=== PATIENT | male | born 1945 | race Caucasian/White ===

== ENCOUNTER 2018-10-25 09:03 | Day surgery (SDC) | payer OTHER ==
[~2018-10-25] VITALS: Ht 170.2 cm; Wt 99.0 kg
[~2018-10-25 09:03] MED LIST: ASPI81CH PO; ASPI81EC PO; CLOP75 PO; Cortisporin Ear10 ML OT; LEVFLO500 PO; METO25ER PO; SIMV40 PO
[2018-10-25] MEDS ORDERED: NITR.4SL SL (10:11)
--- NOTE | 2018-10-25 16:28 | NUR ---
PT VERBALIZED UNDERSTANDING OF D/C INSTRUCTIONS. RIGHT FEMORAL SITE APPEARS TO BE STABLE. MYNX CLOSURE DEVICE USED POST PROCEDURE TODAY. TEGADERM INTACT. NO ACTIVE BLEEDING, OOZING, OR PAIN NOTED. PT ENCOURAGED TO FULLY READ DISCHARGE INSTRUCTIONS AND TO ATTEND FOLLOW UP APT. PT RIDE CALLED AND ENROUTE. IV REMOVED FROM LEFT HAND WITH CATH INTACT, PRESSURE DRESSING APPLIED. PT TAKEN OUT TO VEHICLE VIA W/C WITH NADN. PERSONAL BELONGINGS SENT HOME WITH PT. VSS.
== END 2018-10-25 16:30 | disposition home or self-care (01) ==
LOC: MHTC 09:03
DX: I72.3 Aneurysm of iliac artery (principal); I10 Essential (primary) hypertension; E78.5 Hyperlipidemia, unspecified; Z72.0 Tobacco use
CPT/HCPCS: 37236; 75625; 75710; 99152; 99153; C1725; C1760; C1769; C1874; C1887; C1894; J1644; J2250; J3010; J7030; J7040; Q9967

== ENCOUNTER 2018-12-19 08:45 | Inpatient (IN) | payer OTHER ==
[~2018-12-19] VITALS: Ht 170.2 cm; Wt 99.6 kg
[~2018-12-19 08:45] MED LIST changes: +Lopressor 25 mg25 MG PO; -METO25ER PO; +NITR.4SL SL; -SIMV40 PO; +Zocor20 MG PO
--- NOTE | 2018-12-19 15:21 | NUR ---
1415 PT ADMITTED TO ICU-8 VIA BED. VS NOTED. R GROIN AND R BRACHIAL SITES STABLE, W/O HEMATOMA, DISTAL PULSES STABLE AND PRESENT BUT FAINT. SLOW DISTAL CAP REFILL 3-4 SEC. IN FEET BILATERALLY. PT CAUTIONED REGARDING ASSISTANCE AND CARE OF SITES. PT IS REFUSING BLOOD PRODUCTS AND IS CLEAR ON HIS CHOICE. LUNGS CLEAR, ON RA, NO N/V AND BT DISTANT, PT IS HUNGRY. RHYTHM IS SINUS MICHAEL.
--- NOTE | 2018-12-19 17:18 | NUR ---
PT HAS HAD FREQUENT 15 MIN. X4, 30 MIN. X2 AND NOW AT LEAST HOURLY CHECKS DONE. GROIN AND L BRACHIAL SITE CHECKS WITH ADIQUATE CIRCULATION AND NO OOZING OR HEMATOMA'S NOTED. PT IS C/O R HIP PAIN THAT HE STATED HE HAS AT HOME BUTIS DECLINING PO PAIN MEDS AT THIS TIME. PT HAS TAKEN PO W/O N/V. REMAINS SB WITH STABLE VS NOTED.
--- NOTE | 2018-12-19 18:23 | NUR ---
PT IS NAPPING, VSS, SITES STABLE AND UNCHANGED, GOOD DISTAL PULSES, REMAINS SR/SB. PT REMAINS ON RA W/O RESP DISTRESS. PT WAS COACHED RE CARE OF R GROIN AND L BRACHIAL SITES. POST PROCEDURE PLAVIX GIVEN ORDERED.
--- NOTE | 2018-12-19 20:17 | NUR ---
PATIENT AWAKE, C/O RIGHT HIP PAIN. RIGHT GROIN SITE SOFT WITH DRESSING INTACT WITH DRIED BLOOD CONTAINED WITHIN DRESSING. LINEN CHANGED AND HOB RAISED TO 30. LEFT UPPER ARM DRESSING CD&I AND AREA SOFT. ABD FIRM AND ROUND WITH BOWEL TONES HYPERACTIVE. NO C/O ABD OR GROIN PAIN. NO BRUISING SEEN. PEDAL PULSES 2+. VSS. LEFT EYE WITH STICKY YELLOW DRAINAGE, PATIENT VERBALIZED HAS BEEN HAVING A LEFT STICKY EYE FOR WEEKS NOW. PATIENT APPEARS MORE RELAXED AND VERBALIZED PAIN IS ALMOST GONE AFTER REPOSITIONING.
--- NOTE | 2018-12-20 00:21 | NUR ---
PATIENT SLEEPING AWAKENS TO VERBAL STIMULI. PATIENT VERBALIZED THAT HIS RIGHT HIP CONTINUES TO HURT BUT DENIES NEED FOR PAIN MEDICATION AT THIS TIME. TEMP 101.7, EXTRA BLANKETS REMOVED. PATIENT SOB WITH SLIGHT ACTIVITY MAINTAINING BIOX >90% PATIENT VERBALIZED GETS SOB WITH ACTIVITY AT HOME ALSO. LUNG SOUNDS CLEAR WITH EXPIRATORY WHEEZES. PATIENT USING URINAL VOIDING DARYA URINE. RIGHT GROIN SITE REMAINS SOFT AND NO OOZING SEEN. LEFT UPPER ARM SITE SOFT WITH DRESSING CD&I
--- NOTE | 2018-12-20 06:16 | NUR ---
SUMMARY PATIENT SLEEPING OFF AND ON T/O NIGHT. HAD A TEMP MAX OF 102.8 DURING THE NIGHT. TEMP NOW 99.3 RIGHT GROIN SITE REMAINS SOFT WITH NO FURTHER OOZING, DRESSING INTACT WITH DRIED BLOOD CONTAINED WITHIN DRESSING. LEFT ARM SITE REMAINS SOFT WITH DRESSING CD&I. PATIENT CONTINUES TO C/O RIGHT HIP PAIN, DENIES NEED FOR PAIN MEDICATION AT THIS TIME. PATIENT BIOX DOWN TO 89% WHILE SLEEPING PLACED 2L/NC TO MAINTAIN BIOX >90%
[2018-12-20 15:36] LABS: BASOPHILS ABSOLUTE AUTO 0.06 K/mm3 (0.00-0.23); BASOPHILS PERCENT AUTO 0 % (0-2); EOSINOPHILS ABSOLUTE AUTO 0.05 K/mm3 (0.00-0.68); EOSINOPHILS PERCENT AUTO 0 % (0-6); Hematocrit 38.7 % (37.0-53.0); Hemoglobin 13.4 g/dL (13.5-17.5); IMMATURE GRAN ABSOLUTE AUTO 0.08 K/mm3 (0.00-0.10); IMMATURE GRAN PERCENT AUTO 1 % (0-1); LYMPHOCYTES PERCENT AUTO 12 % (21-46); MONOCYTES ABSOLUTE AUTO 2.11 K/mm3 (0.16-1.47); MONOCYTES PERCENT AUTO 15 % (4-13); Mean Corpuscular HGB 34.1 pg (26.0-34.0); Mean Corpuscular HGB Conc 34.6 g/dL (31.5-36.5); Mean Corpuscular Volume 99 fL (80-100); Mean Platelet Volume 9.9 fL (9.1-12.4); NEUTROPHILS ABSOLUTE AUTO 10.11 K/mm3 (1.96-9.15); NEUTROPHILS PERCENT AUTO 72 % (41-73); Platelet Count 121 K/mm3 (150-400); RDW Standard Deviation 46.7 fL (35.1-46.3); Red Blood Cell Count 3.93 M/mm3 (4.30-5.90); White Blood Cell Count 14.11 K/mm3 (4.00-11.30)
--- NOTE | 2018-12-20 16:17 | NUR ---
PT CONT TO REST AND FEELING CHILLED BUT DR ORDER CHANGE AT THIS POINT TO TREAT FEVER. PT VS STABLE. SATS NOTED. HAS CONT TO VOID SMALL AMOUNTS. R GROIN AND BRACHIAL SITES STABLE PREVIOUSLY NOTED. PT IS EXPERIENCING 3-4/10 PAIN TO R GROIN HIP AREA BUT DECLINES PAIN MEDS AT THIS TIME. NS AT 100ML CONTINUES.
--- NOTE | 2018-12-20 19:40 | NUR ---
PT HAS RESTED WELL THIS PM. DECLINES BATH AND OOB AT THIS TIME. CATH SITES REMAIN STABLE AND UNCHANGE. VSS. HAS VOIDED AND TAKING PO WELL. TEMP. NOTED.
--- NOTE | 2018-12-20 22:33 | NUR ---
ASSUMING CARE RECEIVED PT REPORT FROM BRIELLE ESTEVES. PT IS ALERT AND ORIENTED AT THIS TIME. PT IS ADMITTED FOR ANEURISM REPAIR. PT HAS LEFT BRACHIAL AND RT GROIN ACCESS SITES. DRESSING TO RIGHT GROIN SITE HAS SOME OLD BLOOD OOZING NOTED. THERE DOES NOT APPEAR TO BE ANY FURTHER DRAINAGE ONGOING. NO SIGNS OF SWELLING HEMATOMA OR BRUISING NOTED AT THIS TIME. SITE TO LEFT BRACHIAL SITE APPEARS TO BE CDI AT THIS TIME. THERE IS NO SIGN OF SWELLING, BRUISING OR HEMATOMA TO SITE. PT IS ON 2L O2 VIA NC AT THIS TIME, WITH SPO2 IN THE MID TO HIGH 90'S. PT FIDENCIO SOUNDS APPEAR TO BE CLEAR AT THIS TIME THOUGH DIMINISHED IN THE BASES. PT IS ABLE TO REPOSITION SELF IN BED WITHOUT ASSISTANCE. PT IS RECEIVING NS AT 100ML/HR. ASSUMING CARE OF PT AT THE TIME OF SHIFT REPORT. WILL CONTINUE TO MONITOR PT.
[2018-12-21 04:03] LABS: BASOPHILS ABSOLUTE AUTO 0.04 K/mm3 (0.00-0.23); BASOPHILS PERCENT AUTO 0 % (0-2); EOSINOPHILS ABSOLUTE AUTO 0.05 K/mm3 (0.00-0.68); EOSINOPHILS PERCENT AUTO 0 % (0-6); Hematocrit 38.5 % (37.0-53.0); Hemoglobin 13.1 g/dL (13.5-17.5); IMMATURE GRAN ABSOLUTE AUTO 0.14 K/mm3 (0.00-0.10); IMMATURE GRAN PERCENT AUTO 1 % (0-1); LYMPHOCYTES ABSOLUTE AUTO 2.23 K/mm3 (0.84-5.20); LYMPHOCYTES PERCENT AUTO 14 % (21-46); MONOCYTES PERCENT AUTO 15 % (4-13); Mean Corpuscular HGB 33.7 pg (26.0-34.0); Mean Corpuscular Volume 99 fL (80-100); Mean Platelet Volume 9.9 fL (9.1-12.4); NEUTROPHILS ABSOLUTE AUTO 11.09 K/mm3 (1.96-9.15); NEUTROPHILS PERCENT AUTO 70 % (41-73); Platelet Count 123 K/mm3 (150-400); RDW Standard Deviation 47.4 fL (35.1-46.3); Red Blood Cell Count 3.89 M/mm3 (4.30-5.90); White Blood Cell Count 15.95 K/mm3 (4.00-11.30)
--- NOTE | 2018-12-21 06:18 | NUR ---
SHIFT SUMMARY NOTE PT HAS REMAINED ALERT AND ORIENTED WHILE AWAKE. PT HAS SLEPT THROUGH MOST OF THE NIGHT. PT REMAINS ON 2L O2 VIA NC. PT SPO2 IS MAINTAINING IN THE MID 90'S WITHOUT ANY NOTED DESATURATIONS. PT NOTED TO HAVE A SLIGHT SCATTERED WHEEZE OCCASIONALLY. PT CONTINUES TO RECEIVE NS AT 100ML/HR. RIGHT GROIN ACCESS SITE HAS NOT HAD ANY SIGNS OF FURTHER DRAINAGE AND SITE REMAINS SOFT WITH NO SWELLING, BRUISING, OR HEMATOMA NOTED. LEFT BRACHIAL SITE REMAINS CDI. SITE REMAINS SOFT WELL WITHOUT ANY SIGNS OF SWELLING, HEMATOMA, OR BRUISING. PT HAS REPORTED SOME "MINOR" PAIN TO THE RIGHT HIP, BUT HAS DECLINED PAIN MEDICATIONS OVERNIGHT. PT HAS BEEN ABLE TO USE URINAL OVERNIGHT WITHOUT ASSISTANCE. PT HAS REPOSITIONED SELF IN BED THROUGHOUT THE NIGHT. PT HAS HAD A LOW GRADE TEMP THROUGH THE NIGHT THAT WAS APPROC 99.8 WITH AM VITALS. WILL REPORT OFF TO ONCOMING DAY SHIFT NURSE.
--- NOTE | 2018-12-21 09:41 | NUR ---
ASSUMED CARE / DR. DENT: REPORT RECEIVED FROM JASPER Trevizo RN. ASSUMED CARE OF THIS PT AT APPROX 0700. ON ASSESSMENT, THE PT IS RESTING QUIETLY. HE AWAKENS EASILY TO VERBAL STIMULI & STS MILD SORENESS TO R FEMORAL ACCESS SITE. DENIES NEED FOR MEDS NOW. L BRACHIAL SITE WNL, SMALL AMNT DRIED SANGUINOUS DRAINAGE NOTED TO DRESSING. AREA SURROUNDING SITE IS SOFT & NONTENDER W/ NO BRUISING NOTED. R FEMORAL SITE WNL, MOD AMNTS OF SANGUINOUS DRAINAGE NOTED BENEATH DRESSING, PER PLASTIC SURGERY TECHNICIAN RN, THIS AMNT HAS NOT INCREASED. AREA SURROUNDING SITE IS SOFT & SLIGHTLY TENDER TO PALPATION. DR. DENT AT BEDSIDE TO SEE PT, DOES NOT WISH TO WAKE PT & STS HE WILL COME BACK LATER. POC IS DISCUSSED, POSS D/C HOME TODAY OR TOMORROW. WILL CONTINUE TO MONITOR & UPDATE NEEDED.
--- NOTE | 2018-12-21 15:00 | NUR ---
ASSUMED CARE FROM DAYTON HANNAH PT. RESTING QUIETLY IN BED, ABLE TO REPOSITION SELF NEEDED. VOIDS USING URINAL WHICH IS AT BEDSIDE. BED IS IN LOW POSITION WITH CALL LIGHT IN REACH.
--- NOTE | 2018-12-21 16:53 | NUR ---
SHIFT SUMMARY PT CONTINUES TO BE RESTING COMFORTABLY AT THIS TIME. PT. WAS MED FOR PAIN TO RIGHT HIP/GROIN. SITE REMAINS UNCHANGED FROM PREVIOUS ASSESSMENT. NADN. VSS REMAIN STABLE. PLANS FOR D/C TOMORROW. CONTINUES WITH NS AT 100ML/HR. CALL LIGHT IN REACH. REPORT TO ONCOMING RN.
--- NOTE | 2018-12-21 21:45 | NUR ---
ASSUMED CARE REPORT TAKEN FROM WELDER TOOL AND DIE JASPER. PT BROUGHT TO UNIT BY PIPE BENDER, AND TRANSFFERED TO BED BY STAFF. PT REPORTS FEELING OK, SOME PAIN TO HIP, WILL MEDICATE PER EMAR. GROIN SITE, AND L BRACHIAL SITE INSPECTED. NO HEMATOMAS NOTED, SITES SOFT AND DRESSING WNL. PT SLIGHTLY SOB AFTER TURNING IN BED TO REMOVE EXCESS LINEN. SATS >92% ON RA. DENIES CP. DENIES OTHER NEEDS AT THIS TIME. URINAL PROVIDED AT BEDSIDE. CALL LIGHT IN REACH.
--- NOTE | 2018-12-21 22:00 | NUR ---
ASSUMING CARE AND PT TRANSFER RECEIVED REPORT FROM BRIELLE FINE. PT IS ALERT AND ORIENTED AT THE TIME OF SHIFT REPORT. PT IS ON 2L O2 VIA NC WITH SPO2 IN THE MID 90'S. PT CONTINUES TO HAVE RIGHT GROIN ACCESS SITE AND LEFT BRACHIAL ACCESS SITE. RIGHT GROIN SITE CONTINUES TO EXHIBIT OLD DRAINAGE OF BLOOD, NO CONTINUING DRAINAGE OR OOZING NOTED. SITE IS SOFT WITH NO SWELLING, BRUISING, OR HEMATOMA NOTED. LEFT BRACHIAL SITE HAS A SMALL SPOT OF OLD DRAINAGE WELL WITH NO CONTINUED DRAINAGE OR OOZING NOTED. SITE IS SOFT WITH NO ADVERSE SIGN NOTED. PT DOES REPORT SOME TENDERNESS TO PALPATION OF RIGHT GROI SITE. PT HR IS IN THE 90'S AND APPEARS TO BE SINUS. PT AFEBRILE AT THIS TIME. AT APPROX 2120 REPORT CALLED TO BRIELLE MCQUEEN IN PCU. PT TRANSFERED TO PCU ROOM 16 BY ABHIJEET LUX. PT TRANSFERED WITH ALL BELONGINGS VIA ICU BED AT APPROX 2150.
--- NOTE | 2018-12-22 06:49 | NUR ---
SHIFT SUMMARY PT SLEEPING IN ROOM COMFORTABLY. NO ACUTE CHANGES IN STATUS OVERNIGHT. RESP EVEN UNLABORED ON RA. PT DENIES ANY SOB OR CP. PT CALLED APPROPRIATELY. CALL LIGHT IN REACH.
== END 2018-12-22 13:48 | disposition home or self-care (01) | DRG 272 ==
LOC: MHTC 08:45 → ICUE 12:19 → MHTC 14:55 → ICUE 14:55 → ICUW 12-21 13:09 → ICUE 12-21 13:10 → PCU 12-21 21:45
PROVIDERS: ADMIT Radiology Diagnostic Radiology
PROC: 04LE3DZ Occlusion of Right Internal Iliac Artery with Intraluminal Device, Percutaneous Approach (ICD-10-PCS; principal; 2018-12-19)
PROC: 047H3EZ Dilation of Right External Iliac Artery with Two Intraluminal Devices, Percutaneous Approach (ICD-10-PCS; 2018-12-19)
DX: I72.3 Aneurysm of iliac artery (principal); I25.2 Old myocardial infarction; I10 Essential (primary) hypertension; E78.5 Hyperlipidemia, unspecified; J44.9 Chronic obstructive pulmonary disease, unspecified; I73.9 Peripheral vascular disease, unspecified
CPT/HCPCS: 34703; 34709; 34713; 36415; 37242; 85025; 85347; 99152; 99153; A9270-GY; C1725; C1760; C1769; C1874; C1887; C1894; J1644; J2250; J3010; J7030; J7040; Q9967

== ENCOUNTER 2019-07-17 11:52 | Inpatient (IN) | payer OTHER ==
[~2019-07-17] VITALS: Ht 177.8 cm; Wt 96.4 kg
[2019-07-17 12:24] LABS: BASOPHILS ABSOLUTE AUTO 0.07 K/mm3 (0.00-0.23); BASOPHILS PERCENT AUTO 1 % (0-2); EOSINOPHILS ABSOLUTE AUTO 0.19 K/mm3 (0.00-0.68); EOSINOPHILS PERCENT AUTO 2 % (0-6); Hematocrit 48.7 % (37.0-53.0); Hemoglobin 16.6 g/dL (13.5-17.5); IMMATURE GRAN ABSOLUTE AUTO 0.05 K/mm3 (0.00-0.10); IMMATURE GRAN PERCENT AUTO 0 % (0-1); LYMPHOCYTES ABSOLUTE AUTO 1.83 K/mm3 (0.84-5.20); LYMPHOCYTES PERCENT AUTO 16 % (21-46); MONOCYTES ABSOLUTE AUTO 1.87 K/mm3 (0.16-1.47); MONOCYTES PERCENT AUTO 16 % (4-13); Mean Corpuscular HGB 33.2 pg (26.0-34.0); Mean Corpuscular HGB Conc 34.1 g/dL (31.5-36.5); Mean Corpuscular Volume 97 fL (80-100); Mean Platelet Volume 9.7 fL (9.1-12.4); NEUTROPHILS ABSOLUTE AUTO 7.39 K/mm3 (1.96-9.15); NEUTROPHILS PERCENT AUTO 65 % (41-73); Platelet Count 145 K/mm3 (150-400); RDW Coefficient Variation 13.5 % (11.7-14.2); RDW Standard Deviation 48.8 fL (35.1-46.3)
[2019-07-17 12:52] LABS: Alanine Aminotransfer (ALT/SGP 19 U/L (12-78); Albumin, Blood 3.7 g/dL (3.4-5.0); Albumin/Globulin Ratio 0.7 (0.8-1.8); Alk Phos 123 U/L (50-136); Anion Gap 7 mmol/L (6-16); Aspartate Aminotrans (AST/SGOT 24 U/L (12-37); Blood Urea Nitrogen 13 mg/dL (8-24); Bun/Creatinine Ratio 20.3 (12.0-20.0); CO2, Blood 26 mmol/L (21-32); Calcium, Blood 9.1 mg/dL (8.5-10.1); Chloride, Blood 98 mmol/L (98-108); Creatinine, Blood 0.64 mg/dL (0.60-1.20); Globulin, Blood 5.2 g/dL (2.2-4.0); Glomerular Filtration Rate >60 (60-); Glucose, Blood 91 mg/dL (70-99); Potassium, Blood 4.3 mmol/L (3.5-5.5); Sodium, Blood 131 mmol/L (136-145); Total Protein, Blood 8.9 g/dL (6.4-8.2); Troponin I <0.015 ng/mL (0.000-0.040)
--- NOTE | 2019-07-17 22:28 | NUR ---
PT requests RX at bedtime for high cholesterol. Submitted rx as per home routine, request HS dose per PT request
--- NOTE | 2019-07-18 04:44 | NUR ---
pt continues on oxygen to keep sats greter than 90%. 2 l nc and nebs scheduled and PRN. Not OOB this shift. Cooperative with urinal use. Refused repeatedly to have staff draw resp panel. HX of deviated septum. On IV steroids to tx COPD. Lunds sound Wheezy coarse. On tele monitor sinus rhythm. Wear and slept most of shift. Awoke at HS to request routine meds. PT has CAD with 6 cardiac stents most recent 1 year ago. Denies pain or acute distress.
[2019-07-18 05:56] LABS: BASOPHILS ABSOLUTE AUTO 0.02 K/mm3 (0.00-0.23); BASOPHILS PERCENT AUTO 0 % (0-2); EOSINOPHILS PERCENT AUTO 0 % (0-6); Hematocrit 45.1 % (37.0-53.0); Hemoglobin 15.2 g/dL (13.5-17.5); IMMATURE GRAN ABSOLUTE AUTO 0.05 K/mm3 (0.00-0.10); IMMATURE GRAN PERCENT AUTO 1 % (0-1); LYMPHOCYTES ABSOLUTE AUTO 0.86 K/mm3 (0.84-5.20); LYMPHOCYTES PERCENT AUTO 10 % (21-46); MONOCYTES ABSOLUTE AUTO 0.44 K/mm3 (0.16-1.47); MONOCYTES PERCENT AUTO 5 % (4-13); Mean Corpuscular HGB 32.5 pg (26.0-34.0); Mean Corpuscular HGB Conc 33.7 g/dL (31.5-36.5); Mean Corpuscular Volume 96 fL (80-100); NEUTROPHILS ABSOLUTE AUTO 7.52 K/mm3 (1.96-9.15); NEUTROPHILS PERCENT AUTO 85 % (41-73); Platelet Count 160 K/mm3 (150-400); RDW Coefficient Variation 13.4 % (11.7-14.2); RDW Standard Deviation 47.9 fL (35.1-46.3); Red Blood Cell Count 4.68 M/mm3 (4.30-5.90); White Blood Cell Count 8.89 K/mm3 (4.00-11.30)
[2019-07-18 06:12] LABS: Anion Gap 5 mmol/L (6-16); Blood Urea Nitrogen 17 mg/dL (8-24); Bun/Creatinine Ratio 30.8 (12.0-20.0); CO2, Blood 27 mmol/L (21-32); Calcium, Blood 9.1 mg/dL (8.5-10.1); Chloride, Blood 106 mmol/L (98-108); Creatinine, Blood 0.55 mg/dL (0.60-1.20); Glomerular Filtration Rate >60 (60-); Glucose, Blood 151 mg/dL (70-99); Potassium, Blood 4.7 mmol/L (3.5-5.5); Sodium, Blood 138 mmol/L (136-145)
--- NOTE | 2019-07-18 17:47 | NUR ---
PT ON 2L O2 VIA NC WITH O2 SATS ABOVE 90%, WHEEZES HEARD ON AUSCULTATION. PT GIVEN PRN NEBULIZER TREATMENT TODAY. PT AMBULATES IN HALLWAY, REFUSED TO WEAR O2 WHEN AMBULATING. PT REFUSING RESPIRATORY PANEL AND PUT ON DROPLET/CONTACT PRECAUTIONS. PT DENIES PAIN THIS SHIFT. PT OFFERED AND REFUSED SHOWER.
--- NOTE | 2019-07-19 05:17 | NUR ---
SHIFT SUMMARY PT OFF O2. HAS PERIODS OF INTENSE COUGHING. ADDITIONAL COUGH MEDS ORDERED WITH SOME RELIEF. PT HAD SOME INCREASED WHEEZES NOTED AND WAS TX BY RT WITH SOME REDUCTION. PT HAS NOT SLEPT MUCH T/O SHIFT. PT REPORTED NO DISCOMFORT TO R HIP/ LEG. PT CURRENTLY AWAKE AND BREATHING EASY. CALL LIGHT IN REACH.
--- NOTE | 2019-07-19 17:38 | NUR ---
PT ON RA. EXPIRATORY WHEEZES HEARD ON AUSCULTATION. PT RECEIVED BREATHING TREATMENT TODAY. COUGH PRESENT. PT HAD CONSULT FOR RIGHT LEG PAIN TODAY WITH DR. DENT. PT DENIES ANY PAIN. PT RECEIVED SHOWER WITH ASSISTANCE FROM REFORESTATION WORKER. PT GETTING UP INDEPENDENTLY TO GO OUTSIDE TO SMOKE. EDUCATED ON SMOKING CESSATION, PT NOT INTERESTED AT THE TIME.
--- NOTE | 2019-07-20 01:53 | NUR ---
PT WENT FOR A WALK WITH FWW. PT DENIED ANY SOB DURING WALK AND REPORTS FEELING BETTER. PT COUGH HAS INCREASED POST WALK.
--- NOTE | 2019-07-20 05:28 | NUR ---
SHIFT SUMMARY PT HAD NO ISSUES NOTED. PT COUGH HAS IMPROVED SINCE LAST NOC SHIFT. PT WENT FOR A LATE NIGHT WALK W/O ISSUE. PT HAS BEEN SLEEPING BETTER THIS SHIFT. PT HAS NOT REQUIRED USE OF O2. PT EAGER TO GO HOME. PT CURRENTLY SLEEPING IN NO DISTRESS. CALL LIGHT IN REACH.
[2019-07-20] MEDS ORDERED: ALBU90OI INH (11:09)
[2019-07-20] MEDS ORDERED: TIOT18 INH (11:10)
[2019-07-20] MEDS ORDERED: AZIT500 PO (11:10)
[2019-07-20] MEDS ORDERED: BUDE6HFA INH (11:10)
[2019-07-20] MEDS ORDERED: GUAI600T33 PO (11:11)
[2019-07-20] MEDS ORDERED: Prednisone10 MG PO (11:11)
--- NOTE | 2019-07-20 12:38 | NUR ---
DISCHARGE SUMMARY PATIENT IS PLEASANT. NO ACUTE CONCERNS DURING DISCHARGE FROM THE PATIENT. ALL MEDICATIONS WERE SENT TO THE PATIENT'S PHARMACY PRIOR TO DISCHARGE. PATIENT IV WAS REMOVED AND TELEMETRY BOX WAS SENT BACK TO PCU. PATIENT WAS WHEELEED OUT TO WAIT FOR HIS . PATIENT IS COMPLETELY ALERT AND ORIENTED AND ASKED TO BE WHEELED OUT TO WAIT.
== END 2019-07-20 12:11 | disposition home or self-care (01) | DRG 192 ==
LOC: ER 11:52 → MEDS 15:44
PROVIDERS: Emergency Medicine; Nurse Practitioner Acute Care; ADMIT Internal Medicine
DX: J44.1 Chronic obstructive pulmonary disease with (acute) exacerbation (principal); I25.10 Atherosclerotic heart disease of native coronary artery without angina pectoris; I73.9 Peripheral vascular disease, unspecified; I10 Essential (primary) hypertension; F17.210 Nicotine dependence, cigarettes, uncomplicated; Z95.5 Presence of coronary angioplasty implant and graft; Z79.02 Long term (current) use of antithrombotics/antiplatelets; Z79.82 Long term (current) use of aspirin; Z79.899 Other long term (current) drug therapy
CPT/HCPCS: 36415; 71046; 80048; 80053; 83605; 84145; 84484; 85025; 87040; 93005; 93010; 94640; 94644; 94760; 96365; 99285-25; J0456; J1650; J2930; J7030; J7050; J7512

== ENCOUNTER 2022-11-17 09:07 | Day surgery (SDC) | payer OTHER ==
[~2022-11-17] VITALS: Ht 170.2 cm; Wt 99.0 kg
[~2022-11-17 09:07] MED LIST changes: +ALBU90OI INH; +AZIT500 PO; +BUDE6HFA INH; +GUAI600T33 PO; +LEVSOD25 PO; +Prednisone10 MG PO; +TIOT18 INH
--- NOTE | 2022-11-17 15:55 | NUR ---
PT DRESSED, IV DC'D INTACT, TR BAND REMOVED, DRESSING AND SLING PLACED, R PEDAL SITE STABLE, PT DC'D BY JESUS MUKHERJEE (TRU) DRIVING PT HOME, [facility] CALLED, [facility] WILL BE READY IN AROUND 45 MIN, PT STATES HE MAY JUST PICK THEM UP TOMORROW
== END 2022-11-17 15:55 | disposition home or self-care (01) ==
LOC: MHTC 09:07
DX: I70.213 Atherosclerosis of native arteries of extremities with intermittent claudication, bilateral legs (principal); L97.919 Non-pressure chronic ulcer of unspecified part of right lower leg with unspecified severity; E78.5 Hyperlipidemia, unspecified; I10 Essential (primary) hypertension; Z72.0 Tobacco use
CPT/HCPCS: 76937; 99152; 99153; C1714; C1725; C1769; C1874; C1887; C1894; C2623; J1644; J2250; J3010; J7030; J7050; Q9967

== ENCOUNTER 2022-11-26 18:00 | Emergency (ER) | payer OTHER ==
[~2022-11-26] VITALS: Ht 177.8 cm; Wt 99.8 kg
[2022-11-26 19:18] LABS: BASOPHILS PERCENT AUTO 1 % (0-2); EOSINOPHILS ABSOLUTE AUTO 0.14 K/mm3 (0.00-0.68); EOSINOPHILS PERCENT AUTO 1 % (0-6); Hematocrit 47.1 % (37.0-53.0); Hemoglobin 15.6 g/dL (13.5-17.5); IMMATURE GRAN ABSOLUTE AUTO 0.06 K/mm3 (0.00-0.10); IMMATURE GRAN PERCENT AUTO 1 % (0-1); LYMPHOCYTES ABSOLUTE AUTO 1.75 K/mm3 (0.84-5.20); LYMPHOCYTES PERCENT AUTO 14 % (21-46); MONOCYTES ABSOLUTE AUTO 2.09 K/mm3 (0.16-1.47); MONOCYTES PERCENT AUTO 17 % (4-13); Mean Corpuscular HGB 32.5 pg (26.0-34.0); Mean Corpuscular HGB Conc 33.1 g/dL (31.5-36.5); Mean Corpuscular Volume 98 fL (80-100); Mean Platelet Volume 9.7 fL (9.1-12.4); NEUTROPHILS ABSOLUTE AUTO 8.48 K/mm3 (1.96-9.15); NEUTROPHILS PERCENT AUTO 67 % (41-73); Platelet Count 245 K/mm3 (150-400); RDW Coefficient Variation 13.4 % (11.7-14.2); RDW Standard Deviation 48.9 fL (35.1-46.3); White Blood Cell Count 12.62 K/mm3 (4.00-11.30)
[2022-11-26] MEDS ORDERED: CEPH500 PO (19:40)
[2022-11-26 19:52] LABS: Albumin, Blood 2.9 g/dL (3.4-5.0); Albumin/Globulin Ratio 0.6 (0.8-1.8); Bilirubin, Total 0.7 mg/dL (0.1-1.0); Bun/Creatinine Ratio 23.1 (12.0-20.0); Calcium, Blood 9.2 mg/dL (8.5-10.1); Creatinine, Blood 0.56 mg/dL (0.60-1.20); Globulin, Blood 4.6 g/dL (2.2-4.0); Potassium, Blood 4.1 mmol/L (3.5-5.5); Total Protein, Blood 7.5 g/dL (6.4-8.2)
== END 2022-11-26 20:12 | disposition home or self-care (01) ==
LOC: ER 18:00
PROVIDERS: Student in an Organized Health Care Education/Training Program
DX: L03.115 Cellulitis of right lower limb (principal); Z48.01 Encounter for change or removal of surgical wound dressing; J44.9 Chronic obstructive pulmonary disease, unspecified; F17.200 Nicotine dependence, unspecified, uncomplicated; Z79.82 Long term (current) use of aspirin; Z79.890 Hormone replacement therapy; Z79.899 Other long term (current) drug therapy
CPT/HCPCS: 36415; 80053; 85025; 99283; A9270

== ENCOUNTER 2022-11-29 18:48 | Emergency (ER) | payer OTHER ==
[~2022-11-29] VITALS: Ht 177.8 cm; Wt 99.8 kg
[~2022-11-29 18:48] MED LIST changes: +CEPH500 PO
[2022-11-29] MEDS ORDERED: FUROSEMIDE20 MG PO (20:04)
[2022-11-29 20:11] LABS: BASOPHILS ABSOLUTE AUTO 0.08 K/mm3 (0.00-0.23); BASOPHILS PERCENT AUTO 1 % (0-2); EOSINOPHILS ABSOLUTE AUTO 0.17 K/mm3 (0.00-0.68); EOSINOPHILS PERCENT AUTO 1 % (0-6); Hematocrit 47.7 % (37.0-53.0); Hemoglobin 16.2 g/dL (13.5-17.5); IMMATURE GRAN ABSOLUTE AUTO 0.08 K/mm3 (0.00-0.10); IMMATURE GRAN PERCENT AUTO 1 % (0-1); LYMPHOCYTES ABSOLUTE AUTO 1.52 K/mm3 (0.84-5.20); LYMPHOCYTES PERCENT AUTO 13 % (21-46); MONOCYTES PERCENT AUTO 17 % (4-13); Mean Corpuscular HGB 32.1 pg (26.0-34.0); Mean Corpuscular Volume 95 fL (80-100); NEUTROPHILS ABSOLUTE AUTO 8.27 K/mm3 (1.96-9.15); NEUTROPHILS PERCENT AUTO 68 % (41-73); RDW Coefficient Variation 13.4 % (11.7-14.2); Red Blood Cell Count 5.05 M/mm3 (4.30-5.90); White Blood Cell Count 12.12 K/mm3 (4.00-11.30)
[2022-11-29 20:16] LABS: International Normalized Ratio 1.12; Prothrombin Time Results 11.7 Sec (9.7-11.5)
[2022-11-29 20:20] LABS: Albumin, Blood 2.8 g/dL (3.4-5.0); Albumin/Globulin Ratio 0.6 (0.8-1.8); Bilirubin, Total 0.6 mg/dL (0.1-1.0); Creatinine, Blood 0.4 mg/dL (0.60-1.20); Globulin, Blood 4.8 g/dL (2.2-4.0); Total Protein, Blood 7.6 g/dL (6.4-8.2)
[2022-11-29 20:39] LABS: Mean Platelet Volume 9.9 fL (9.1-12.4); Platelet Count 251 K/mm3 (150-400)
[2022-11-29] MEDS ORDERED: SULTRIDS PO (21:31)
== END 2022-11-29 21:52 | disposition home or self-care (01) ==
LOC: ER 18:48
PROVIDERS: Student in an Organized Health Care Education/Training Program
DX: L03.115 Cellulitis of right lower limb (principal); J44.9 Chronic obstructive pulmonary disease, unspecified; F17.200 Nicotine dependence, unspecified, uncomplicated; Z79.899 Other long term (current) drug therapy; Z79.82 Long term (current) use of aspirin
CPT/HCPCS: 36415; 80053; 83605; 85025; 85610; A9270